=== PATIENT | male | born 1990 | race Hispanic/Latino ===

== ENCOUNTER 2023-04-11 23:28 | Emergency (ER) | payer OTHER ==
[~2023-04-11] VITALS: Ht 177.8 cm; Wt 117.5 kg
[2023-04-11] MEDS ORDERED: SODIUM CHLORIDE 0.9% 1000ML 1,000 ML IV STA (23:52)
[2023-04-12] MEDS ORDERED: GLUCAGON FOR INJ 1 MG VIAL IV ONE
[2023-04-12] MEDS ORDERED: ONDANSETRON ODT4 MG PO (00:12)
[2023-04-12 00:17] VITALS: BP 156/97; PULSE 80; RESP 18; TEMP 97.2; O2SAT 95
== END 2023-04-12 00:17 | disposition home or self-care (01) ==
LOC: FSED 23:32
DX: R11.2 Nausea with vomiting, unspecified (principal); I95.9 Hypotension, unspecified; I48.91 Unspecified atrial fibrillation; R94.31 Abnormal electrocardiogram [ECG] [EKG]
CPT/HCPCS: 93005; 99282

== ENCOUNTER 2024-07-24 18:40 | Emergency (ER) | payer BC, OTHER ==
[~2024-07-24] VITALS: Ht 177.8 cm; Wt 113.4 kg
[~2024-07-24 18:40] MED LIST: IBUPROFEN200 MG PO; ONDANSETRON ODT4 MG PO; TYLENOL325 MG PO
[2024-07-24 19:43] VITALS: PULSE 83; RESP 16; TEMP 98.9
[2024-07-24] MEDS ORDERED: CELEBREX200 MG PO (21:40)
[2024-07-24 22:14] VITALS: BP 125/77; PULSE 82; RESP 16; TEMP 98.6; O2SAT 97
== END 2024-07-24 22:05 | disposition home or self-care (01) ==
LOC: FSED 20:23
DX: M25.511 Pain in right shoulder (principal); M77.8 Other enthesopathies, not elsewhere classified; L84 Corns and callosities; I10 Essential (primary) hypertension; I48.91 Unspecified atrial fibrillation
CPT/HCPCS: 99283

== ENCOUNTER 2025-01-29 06:35 | Emergency (ER) | payer BC, OTHER ==
[~2025-01-29] VITALS: Ht 177.8 cm; Wt 113.4 kg
[~2025-01-29 06:35] MED LIST changes: +CELEBREX200 MG PO
[2025-01-29] MEDS ORDERED: MECLIZINE HCL 12.5 MG TAB ONE (07:59)
[2025-01-29] MEDS: MECLIZINE HCL 12.5 MG TAB PO ONE (08:05)
[2025-01-29 08:54] VITALS: PULSE 84; RESP 16; TEMP 98.5; O2SAT 95
[2025-01-29] MEDS ORDERED: MECLIZINE HCL12.5 MG PO (09:01)
== END 2025-01-29 09:08 | disposition home or self-care (01) ==
LOC: FSED 07:21
DX: H81.13 Benign paroxysmal vertigo, bilateral (principal); I10 Essential (primary) hypertension; I48.91 Unspecified atrial fibrillation
CPT/HCPCS: 70450; 80053; 81003; 85025; 93005; 99284; J8597

== ENCOUNTER 2025-02-10 19:23 | Emergency (ER) | payer OTHER ==
[~2025-02-10] VITALS: Ht 177.8 cm; Wt 122.9 kg
[~2025-02-10 19:23] MED LIST changes: +MECLIZINE HCL12.5 MG PO
[2025-02-10 19:45] VITALS: PULSE 84; RESP 19; TEMP 99.4
[2025-02-10] MEDS ORDERED: PREDNISONE20 MG PO (19:51)
[2025-02-10] MEDS ORDERED: CYCLOBENZAPRINE5 MG PO (19:52)
[2025-02-10 19:54] VITALS: BP 143/91; PULSE 84; RESP 19; TEMP 99.4; O2SAT 97
== END 2025-02-10 19:57 | disposition home or self-care (01) ==
LOC: FSED 19:51
DX: M25.511 Pain in right shoulder (principal); M54.12 Radiculopathy, cervical region; I10 Essential (primary) hypertension; I48.91 Unspecified atrial fibrillation
CPT/HCPCS: 99283

== ENCOUNTER 2025-03-16 22:37 | Emergency (ER) | payer OTHER ==
[~2025-03-16] VITALS: Ht 177.8 cm; Wt 117.9 kg
[~2025-03-16 22:37] MED LIST changes: +CYCLOBENZAPRINE5 MG PO; +PREDNISONE20 MG PO
[2025-03-16 22:40] VITALS: PULSE 93; RESP 17; TEMP 98.2
[2025-03-16] MEDS ORDERED: FAMOTIDINE 20 MG/2 ML VIAL IV STA (23:10)
[2025-03-16] MEDS ORDERED: ONDANSETRON HCL INJ 2MG/ML 2ML 2 MG/ML VIAL IV STA (23:10)
[2025-03-16] MEDS ORDERED: KETOROLAC TROMETHAMINE 30 MG/ML VIAL IV STA (23:13)
[2025-03-16] MEDS ORDERED: SODIUM CHLORIDE 0.9% 1000ML 1,000 ML IV SCH (23:15)
[2025-03-16] MEDS: ONDANSETRON HCL INJ 2MG/ML 2ML 2 MG/ML VIAL IV STA (23:24)
[2025-03-16] MEDS: FAMOTIDINE 20 MG TAB PO ONE (23:24)
[2025-03-16] MEDS ORDERED: ONDANSETRON ODT4 MG PO (23:34)
[2025-03-17 00:07] VITALS: BP 146/94; PULSE 93; RESP 17; TEMP 98.2; O2SAT 97
== END 2025-03-17 00:15 | disposition home or self-care (01) ==
LOC: FSED 22:40
DX: R11.2 Nausea with vomiting, unspecified (principal); R10.13 Epigastric pain; I10 Essential (primary) hypertension
CPT/HCPCS: 80048; 80076; 81003; 85025; 99284; J2405